=== PATIENT | female | born 1935 | race Caucasian/White ===

== ENCOUNTER → 2017-05-22 | Outpatient (CLI) | payer MEDICARE, BC ==
[~2017-05-22] MED LIST: HYDROCHLOROTHIA25 M2; NORVASC5 MG
== END ==
LOC: M.RAD 09:18
DX: M67.912 Unspecified disorder of synovium and tendon, left shoulder (principal)

== ENCOUNTER → 2017-10-05 | Outpatient (CLI) | payer MEDICARE, BC | LOC: M.RAD 14:37 | DX: Z12.31 Encounter for screening mammogram for malignant neoplasm of breast (principal); R05 Cough; I10 Essential (primary) hypertension; Z88.0 Allergy status to penicillin ==

== ENCOUNTER → 2018-08-03 | Outpatient (CLI) | payer MEDICARE, BC | LOC: M.ULTRA 09:30 | DX: I65.23 Occlusion and stenosis of bilateral carotid arteries (principal); Z88.8 Allergy status to other drugs, medicaments and biological substances; Z88.5 Allergy status to narcotic agent ==

== ENCOUNTER → 2019-01-25 | Outpatient (CLI) | payer MEDICARE, BC | LOC: M.ULTRA 09:14 | DX: I65.23 Occlusion and stenosis of bilateral carotid arteries (principal); Z88.8 Allergy status to other drugs, medicaments and biological substances ==

== ENCOUNTER → 2019-02-01 | Outpatient (CLI) | payer MEDICARE, BC ==
[2019-02-01 14:55] LABS: ABSOLUTE EOSINOPHILS 0.2 thou/uL (0.0-0.7); ABSOLUTE LYMPHOCYTES 2.4 thou/uL (0.8-5.3); ABSOLUTE MONOCYTES 0.6 thou/uL (0.0-1.2); ABSOLUTE NEUTROPHILS 3.6 thou/uL (1.6-8.1); BASOPHILS 0.7 %; EOSINOPHILS 2.5 %; HEMATOCRIT 34.8 % (37.0-47.0); HEMOGLOBIN 12.2 gm/dL (12.0-15.0); LYMPHOCYTES 35.5 %; MCH 31.4 pg (26.0-34.0); MCHC 34.9 g/dL (28.0-37.0); MCV 90.1 fL (80.0-100.0); MONOCYTES 8.4 %; MPV 8.5 fl. (7.2-11.1); NUCLEATED RBCS 0 /100WBC; PLATELET COUNT* 210 thou/uL (150-400); POLYS 52.9 %; RBC 3.87 mil/uL (4.20-5.00); RDW-CV 12.9 % (10.5-14.5); WBC 6.9 thou/uL (4.0-11.0)
[2019-02-01 15:12] LABS: CALCIUM 9.2 mg/dL (8.5-10.1); CREATININE 0.8 mg/dL (0.6-1.3); POTASSIUM 3.4 mmol/L (3.5-5.1)
== END ==
LOC: M.LAB 14:33
PROVIDERS: Registered Nurse
DX: R55 Syncope and collapse (principal)

== ENCOUNTER → 2019-12-21 | Outpatient (CLI) | payer MEDICARE, BC ==
--- NOTE | 2019-12-21 13:46 | 2DMMODE ---
[place] [address] 2 D/M-MODE ECHOCARDIOGRAM Name: MELINA VILLANUEVA Room: [facility]#: [id number] Admission: 12/21/19 Attend Phys: Louie Retana Discharge: Date of : 37 Date of Service: 12/21/19 1346 Report #: [id number] THIS REPORT FOR: cc: Wanda Encinas,Wanda Poole,Wm Noble MD [facility] ~ APPROVED REPORT Study performed: 12/21/2019 10:06:47 EXAM: Comprehensive 2D, Doppler, and color-flow Echocardiogram Patient Location: Out-Patient BSA: 1.74 HR: 65 bpm BP: 183/97 mmHg Other Information Study Quality: Fair Indications Hypertension/HDD 2D Dimensions IVSd: 17.74 (7-11mm) LVOT Diam: 20.57 (18-24mm) LVDd: 33.60 mm PWd: 12.01 (7-11mm) Ascending Ao: 27.60 (22-36mm) LVDs: 24.58 (25-40mm) Aortic Root: 32.44 mm Volumes Left Atrial Volume (Systole) LA ESV Index: 18.60 mL/m2 Aortic Valve AoV Peak Haroldo.: 0.84 m/s AO Peak Gr.: 2.80 mmHg LVOT Max P.46 mmHg AO Mean Gr.: 1.62 mmHg LVOT Mean P.23 mmHg LVOT Max V: 0.78 m/s AO V2 VTI: 22.91 cm LVOT Mean V: 0.52 m/s NGUYỄN (VTI): 3.10 cm2 LVOT V1 VTI: 21.34 cm Mitral Valve E/A Ratio: 0.72 [place] [address] 2 D/M-MODE ECHOCARDIOGRAM Name: MELINA VILLANUEVA Room: [facility]#: [id number] Admission: 12/21/19 Attend Phys: Louie Retana Discharge: Date of : 37 Date of Service: 12/21/19 1346 Report #: [id number] MV Decel. Time: 215.48 ms MV E Max Haroldo.: 0.52 m/s MV PHT: 62.49 ms MVA (PHT): 3.52 cm2 TDI E/Lateral E': 7.43 E/Medial E': 7.43 Medial E' Haroldo.: 0.07 m/s Lateral E' Haroldo.: 0.07 m/s Pulmonary Valve PV Peak Haroldo.: 1.03 m/s PV Peak Gr.: 4.27 mmHg Left Ventricle The left ventricle is normal size. There is normal LV segmental wall motion. Mild basal septal hypertrophy is present. Left ventricular systolic function is normal. The left ventricular ejection fraction is within the normal range. LVEF is 55-60%. Grade I - abnormal relaxation pattern. Right Ventricle The right ventricle is normal size. The right ventricular systolic function is normal. Atria The left atrium size is normal. The right atrium size is normal. Aortic Valve The aortic valve is normal in structure. No aortic regurgitation is present. There is no aortic valvular stenosis. Mitral Valve The mitral valve is normal in structure. There is no mitral valve regurgitation noted. No evidence of mitral valve stenosis. Tricuspid Valve The tricuspid valve is normal in structure. There is trace tricuspid valve regurgitation noted. Pulmonic Valve The pulmonary valve is normal in structure. There is no pulmonic valvular regurgitation. Great Vessels The aortic root is normal in size. IVC [place] [address] 2 D/M-MODE ECHOCARDIOGRAM Name: MELINA VILLANUEVA Room: [facility]#: [id number] Admission: 12/21/19 Attend Phys: Louie Retana Discharge: Date of : 37 Date of Service: 12/21/19 1346 Report #: [id number] collapses >50% with inspiration. Pericardium There is no pericardial effusion. <Conclusion> Mild basal septal hypertrophy is present. LVEF is 55-60%. <ELECTRONICALLY SIGNED> By: Wm Jeter MD, FACC 12/21/19 1346 1346 134 Wm Jeter MD, FACC /INF
== END ==
LOC: M.CRD 10:00
PROVIDERS: ATTEND Internal Medicine
DX: I10 Essential (primary) hypertension (principal)

== ENCOUNTER → 2020-08-02 | Outpatient (CLI) | payer MEDICARE, BC | LOC: M.ULTRA 08:42 | PROVIDERS: ATTEND Internal Medicine | DX: I65.23 Occlusion and stenosis of bilateral carotid arteries (principal) ==

== ENCOUNTER → 2021-01-16 | Outpatient (CLI) | payer MEDICARE, BC ==
--- NOTE | 2021-01-16 17:12 | 2DMMODE ---
[place] [address] 2 D/M-MODE ECHOCARDIOGRAM Name: MELINA VILLANUEVA Room: [facility]#: [id number] Admission: 01/16/21 Attend Phys: Louie Retana Discharge: Date of : 37 Date of Service: 01/16/21 1712 Report #: [id number] THIS REPORT FOR: cc: Wanda Encinas,Stew Malik MD [facility] ~ APPROVED REPORT Study performed: 01/16/2021 11:09:22 EXAM: Comprehensive 2D, Doppler, and color-flow Echocardiogram Patient Location: Out-Patient BSA: 1.80 HR: 65 bpm BP: 161/89 mmHg Other Information Study Quality: Good Indications Hypertension/HDD 2D Dimensions IVSd: 14.23 (7-11mm) LVOT Diam: 19.27 (18-24mm) LVDd: 43.92 mm PWd: 9.93 (7-11mm) Ascending Ao: 29.29 (22-36mm) LVDs: 19.11 (25-40mm) Aortic Root: 31.28 mm Volumes Left Atrial Volume (Systole) LA ESV Index: 14.60 mL/m2 Aortic Valve AoV Peak Haroldo.: 0.92 m/s AO Peak Gr.: 3.36 mmHg LVOT Max P.44 mmHg AO Mean Gr.: 1.97 mmHg LVOT Mean P.79 mmHg LVOT Max V: 0.93 m/s AO V2 VTI: 22.43 cm LVOT Mean V: 0.62 m/s NGUYỄN (VTI): 3.11 cm2 LVOT V1 VTI: 23.91 cm Mitral Valve E/A Ratio: 0.88 [place] [address] 2 D/M-MODE ECHOCARDIOGRAM Name: MELINA VILLANUEVA Room: [facility]#: [id number] Admission: 01/16/21 Attend Phys: Louie Retana Discharge: Date of : 37 Date of Service: 01/16/21 1712 Report #: [id number] MV Decel. Time: 258.99 ms MV E Max Haroldo.: 0.85 m/s MV PHT: 75.11 ms MVA (PHT): 2.93 cm2 TDI E/Lateral E': 12.14 E/Medial E': 14.17 Medial E' Haroldo.: 0.06 m/s Lateral E' Haroldo.: 0.07 m/s Pulmonary Valve PV Peak Haroldo.: 0.93 m/s PV Peak Gr.: 3.43 mmHg Left Ventricle The left ventricle is normal size. There is normal LV segmental wall motion. Mild to moderate concentric left ventricular hypertrophy. Left ventricular systolic function is normal. LVEF is 55-60%. Grade I - abnormal relaxation pattern. Right Ventricle The right ventricle is normal size. The right ventricular systolic function is normal. Atria The left atrium size is normal. The right atrium size is normal. Aortic Valve The aortic valve is normal in structure. No aortic regurgitation is present. There is no aortic valvular stenosis. Mitral Valve The mitral valve is normal in structure. There is no mitral valve regurgitation noted. No evidence of mitral valve stenosis. Tricuspid Valve The tricuspid valve is normal in structure. There is no tricuspid valve regurgitation noted. Pulmonic Valve The pulmonary valve is normal in structure. There is no pulmonic valvular regurgitation. Great Vessels The aortic root is normal in size. IVC is normal in size and collapses >50% [place] [address] 2 D/M-MODE ECHOCARDIOGRAM Name: MELINA VILLANUEVA Room: [facility]#: [id number] Admission: 01/16/21 Attend Phys: Louie Retana Discharge: Date of : 37 Date of Service: 01/16/21 1712 Report #: [id number] Pericardium There is no pericardial effusion. <Conclusion> The left ventricle is normal size. Mild to moderate concentric left ventricular hypertrophy. Left ventricular systolic function is normal. LVEF is 55-60%. Grade I - abnormal relaxation pattern. IVC is normal in size and collapses >50% with inspiration. <ELECTRONICALLY SIGNED> By: Stew Givens MD, FACC 01/16/211711 11 11 Stew Givens MD, FACC /INF
== END ==
LOC: M.CRD 10:45
PROVIDERS: ATTEND Internal Medicine
DX: I11.9 Hypertensive heart disease without heart failure (principal)